=== PATIENT | female | born 1985 | race Caucasian/White ===

== ENCOUNTER → 2016-09-20 | Outpatient (CLI) | payer BC ==
--- NOTE | 2016-09-20 14:53 | CR ---
EXAMINATION: Left ankle HISTORY: Pain COMPARISON: 03/17/2016 TECHNIQUE: 3 views FINDINGS/IMPRESSION: There is no acute osseous abnormality, dislocation, or fracture identified. Bon e mineralization and joint spaces appear normal. The ankle mortise and talar dome appear intact.
== END | disposition home or self-care (01) ==
LOC: MW.CHORTHO 07:52
PROVIDERS: ATTEND Orthopaedic Surgery
DX: M25.572 Pain in left ankle and joints of left foot (principal)
CPT/HCPCS: 73610-26-LT; 73610-LT

== ENCOUNTER → 2016-09-21 | Outpatient (CLI) | payer BC ==
--- NOTE | 2016-09-22 09:54 | MR ---
EXAMINATION: MRI of the left ankle HISTORY: Pain COMPARISON: Radiographs dated 09/20/2016 TECHNIQUE: Multiplanar and multisequence images obtained of the left ankle without contrast. FINDINGS: The Achilles tendon appears normal. The anterior talofibular ligament is torn posterior ta lofibular ligament is increased in signal however intact. Anterior and posterior tibiofibular ligame nts are intact. The calcaneofibular ligament is now well characterized and likely torn. The peroneus brevis and longus tendons appear intact. The remaining flexor and extensor tendons appear normal. T here is no abnormal bone marrow signal. The joint spaces appear preserved. No abnormal signal within the sinus Tarsi. No joint effusion. The posterior tibiotalar ligament is indistinct. IMPRESSION: 1. Anterior talofibular and calcaneofibular ligament tears. 2. Probable sprain of the posterior tibiotalar ligament.
== END ==
LOC: MW.MRI 14:13
PROVIDERS: ATTEND Orthopaedic Surgery
DX: M25.572 Pain in left ankle and joints of left foot (principal); S93.492A Sprain of other ligament of left ankle, initial encounter
CPT/HCPCS: 73721-26-LT; 73721-LT

== ENCOUNTER 2021-06-11 17:16 | Emergency (ER) | payer BC ==
--- NOTE | 2021-06-11 17:19 | EDM.PDOC ---
ED HPI GENERAL MEDICAL PROBLEM - General Chief Complaint: Upper Extremity Injury/Pain Stated Complaint: LT MIDDLE FINGER INJURY Time Seen by Provider: 06/11/21 17:18 Source of Information: Reports: Patient History Limitations: Reports: No Limitations - History of Present Illness INITIAL COMMENTS - FREE TEXT/NARRATIVE: HISTORY AND PHYSICAL: History of present illness: Patient is a 35-year-old female who presents to the emergency room with complaints of a crush injury of the left third digit. There is a laceration through the mid-nail, avoiding the base of the nail. She has full ROM. Patient denies any fever, chills, headache, change in vision, syncope or near syncope. Denies any chest pain, back pain, shortness of breath or cough. Denies any abdominal pain, nausea, vomiting, diarrhea, constipation or dysuria. Has not noted any blood in urine or stool. Patient has been eating and drinking appropriately. No recent travel or sick contacts. Review of systems: As per history of present illness and below otherwise all systems reviewed and negative. Past medical history: As per history of present illness and as reviewed below otherwise noncontributory. Surgical history: As per history of present illness and as reviewed below otherwise noncontributory. Social history: See social history for further information Family history: As per history of present illness and as reviewed below otherwise noncontributory. Physical exam: General: Well developed and well nourished 35-year-old female. Alert and orientated x 3. Nontoxic in appearance and in no acute distress. Vital signs are stable and have been reviewed by me. Nursing notes were reviewed. HEENT: Atraumatic, normocephalic, pupils equal and reactive bilaterally, negative for conjunctival pallor or scleral icterus, mucous membranes moist, TMs normal bilaterally, throat clear, neck supple, nontender, trachea midline. No drooling or trismus noted. No meningeal signs. No hot potato voice noted. Lungs: Clear to auscultation bilaterally. No wheezes, rales, or rhonchi. Chest nontender. Normal work of breathing, no accessory muscles used. Heart: S1S2, regular rate and rhythm without overt murmur, gallops, or rubs. No JVD. No peripheral edema Abdomen: Soft, nondistended, nontender. Normoactive bowel sounds. Negative for masses or costovertebral tenderness. Skin: 0.5 cm laceration through the distal nail of the left third finger. Remaining skin is intact, warm, dry. No lesions or rashes noted. Hematologic: No petechiae or purpra. Mucosa appropriate color and normal nail bed color and refill. Extremities: Crush injury of the left third finger, cap refill less than 2 seconds. No active bleeding. She moves all extremities per self without difficulty or deficits, negative for cords or calf pain. Neurovascular unremarkable. Neuro: Awake, alert, oriented. Cranial nerves II through XII unremarkable. Cerebellum unremarkable. Motor and sensory unremarkable throughout. Exam nonfocal. Psychiatric: Mood and affect are appropriate. Normal thought process. Answering questions appropriately. Please note that the patient was seen and evaluated during the 2019 SARS-CoV-2 novel coronavirus pandemic period. Community viral transmission is ongoing at time of this encounter and the emergency department is operating under pandemic response procedures. Medical Decision Making: X-ray shows a left third digit three-view radiograph. Mildly comminuted fracture of the tuft of the 3rd digit distal phalanx with minimally displaced fracture fragments. Soft tissue defect of the distal digit. No radiopaque foreign body identified. Laceration was cleansed with chlorhexidine after soaking for 15 minutes. Laceration is approximately 0.5 centimeters through the distal nail, does not affect the base of the nail. I did talk with Dr Tarsha Welch who gave recommendations. I have talked with the patient about today's findings, in addition to providing specific details for plan of care. Place patient on Keflex. Reassessment at the time of disposition demonstrates that the patient is in no acute distress. The patient is stable for discharge, counseling was provided and we discussed in great detail signs and symptoms that would prompt them to return to the Emergency Department. Medication, follow up and supportive care measures were reviewed and discussed. Voices understanding and is agreeable to plan of care. Denies any further questions or concerns at this time. Diagnostics: Finger x-ray Therapeutics: Tdap, ibuprofen Prescription: Keflex Impression: Tuft fracture Plan: 1. You were evaluated today on an emergent basis. Your x-ray shows a tuft fracture. We did talk to Dr. Tarsha Welch about your injury. She agrees that the nail should not be removed. Keep the skin clean and dry. Wash gently with mild soap and water twice daily. After the skin has healed in approximately 2 weeks, you can apply a nail lacquer or glue over the nail while it is growing out to avoid catching on clothing. 2. Take the antibiotic as prescribed. You can alternate Tylenol and ibuprofen as needed for pain and fever management. 3. We encourage you to follow up with your primary care provider and/or recommended specialist in the next few days for re-evaluation and further care/management. 4. If your symptoms should worsen, new symptoms develop or any of the signs and symptoms we discussed should arise please return to the emergency room or call 911 (if needed). Definitive disposition and diagnosis as appropriate pending reevaluation and review of above. L hand Pain Score (Numeric/FACES): 3 - Related Data Allergies Allergy/AdvReac Type Severity Reaction Status Date / Time Band-aid adhesive part AdvReac Redness Uncoded 06/11/21 17:22 Home Meds: Home Meds Ascorbic Acid [Vitamin C] 1 tab PO DAILY 06/16/15 [History] Calcium Carbonate [Calcium] 1 tab PO DAILY 06/16/15 [History] Iron 1 tab PO DAILY 06/16/15 [History] Vit No.78/Iron/Fa [Prenatabs FA] 1 tab PO DAILY 06/16/15 [History] Yeast,Dried (S. Cerevisiae) [Martínez's Yeast] 2 tab PO DAILY 06/16/15 [History] Hydrocodone/Acetaminophen [HYDROcodone-Acetaminophen 5-325 MG] 1 - 2 tab PO Q4HR PRN #15 tablet 06/11/21 [Rx] cephALEXin [Keflex] 500 mg PO BID 5 Days #10 cap 06/11/21 [Rx] Past Medical History Gastrointestinal History: Reports: GERD Other Gastrointestinal History: Heartburn in only Genitourinary History: Reports: Other (See Below) Other Genitourinary History: Pelvic Organ prolapse, 3 Para 3 Last delivery 03/31/15 Lactating mother RAZOR GRINDER History: Reports: Prolapsed Uterus Hematologic History: Reports: Anemia Other Dermatologic History: History 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 Neither have had follow-up for Clearance of MRSA - Infectious Disease History Infectious Disease History: Reports: Chicken Pox - Past Surgical History HEENT Surgical History: Reports: Oral Surgery Musculoskeletal Surgical History: Reports: Other (See Below) Social & Family History - Family History Cardiac: Reports: Hypertension OBGYN: Reports: Fibroids, , Other (See Below) Other OBGYN Family History: hysterectomy Neurological: Reports: Other (See Below) Other Neurological Family History: stroke Endocrine/Metabolic: Reports: Diabetes, type II, Hyperthyroidism Oncologic: Reports: Brain, Lung Review of Systems - Review of Systems Review Of Systems: Comprehensive ROS is negative, except as noted in HPI. ED EXAM, GENERAL - Physical Exam Exam: See Below (See dictation) Course - Vital Signs Last Recorded V/S: Last Vital Signs Temp 97.4 F 06/11/21 17:24 Pulse 82 06/11/21 17:24 Resp 18 06/11/21 17:24 BP 120/91 H 06/11/21 17:24 Pulse Ox 87 L 06/11/21 17:24 - Orders/Labs/Meds Orders: Active Orders 24 hr Category Date Time Status Communication Order [RC] STAT Care 06/11/21 17:38 Active Vaccine to be Administered/Admin Charge [RC] ASDIRECTED Care 06/11/21 17:24 Active Meds: Medications Discontinued Medications Generic Name Dose Route Start Last Admin Trade Name Freq PRN Reason Stop Dose Admin Bacitracin 1 dose 06/11/21 17:23 06/11/21 17:56 Bacitracin Oint 1 Gm U/D Packet TOP 06/11/21 17:24 1 dose ONETIME ONE Administration Diphtheria/Tetanus/Acell Pertussis 0.5 ml 06/11/21 17:23 06/11/21 17:51 Diphtheria,Pertussis(Acell),Tetanus Vaccine 0.5 Ml Syringe IM 06/11/21 17:24 0.5 ml .ONCE ONE Administration Ibuprofen 800 mg 06/11/21 17:38 06/11/21 17:50 Ibuprofen 800 Mg Tab PO 06/11/21 17:39 800 mg ONETIME ONE Administration Departure - Departure Time of Disposition: 18:18 Disposition: Home, Self-Care 01 Clinical Impression: Open fracture of tuft of distal phalanx of finger, Laceration - Discharge Information Prescriptions: Hydrocodone/Acetaminophen [HYDROcodone-Acetaminophen 5-325 MG] 1 - 2 tab PO Q4HR PRN #15 tablet PRN Reason: Pain (Moderate 4-6) cephALEXin [Keflex] 500 mg PO BID 5 Days #10 cap Forms: ED Department Discharge Additional Instructions: The following information is given to patients seen in the emergency department who are being discharged to home. This information is to outline your options for follow-up care. We provide all patients seen in our emergency department with a follow-up referral. The need for follow-up, as well as the timing and circumstances, are variable depending upon the specifics of your emergency department visit. If you don't have a primary care physician on staff, we will provide you with a referral. We always advise you to contact your personal physician following an emergency department visit to inform them of the circumstance of the visit and for follow-up with them and/or the need for any referrals to a consulting specialist. The emergency department will also refer you to a specialist when appropriate. This referral assures that you have the opportunity for follow-up care with a specialist. All of these measure are taken in an effort to provide you with optimal care, which includes your follow-up. Under all circumstances we always encourage you to contact your private physician who remains a resource for coordinating your care. When calling for follow-up care, please make the office aware that this follow-up is from your recent emergency room visit. If for any reason you are refused follow-up, please contact the [facility] Emergency Department at and asked to speak to the emergency department charge nurse. [facility] [address] [place] [address] [place] [address] Thank you for choosing the [facility] emergency department in [place] for your medical needs today. It was a pleasure caring for you. Today you were seen in the emergency department for finger injury Your prescription was electronically sent to: [facility]. You were evaluated today on an emergent basis. Your x-ray shows a tuft fracture. We did talk to Dr. Tarsha Perry about your injury. She agrees that the nail should not be removed. Keep the skin clean and dry. Wash gently with mild soap and water twice daily. After the skin has healed in approximately 2 weeks, you can apply a nail lacquer or glue over the nail while it is growing out to avoid catching on clothing. 2. Take the antibiotic as prescribed. You can alternate Tylenol and ibuprofen as needed for pain and fever management. 3. We encourage you to follow up with your primary care provider and/or zachariah mmended specialist in the next few days for re-evaluation and further care/management. 4. If your symptoms should worsen, new symptoms develop or any of the signs and symptoms we discussed should arise please return to the emergency room or call 911 (if needed). Sepsis Event Note (ED) - Focused Exam Vital Signs: Vital Signs Temp Pulse Resp BP Pulse Ox 06/11/21 17:24 97.4 F 82 18 120/91 H 87 L - My Orders Last 24 Hours: My Active Orders 06/11/21 17:24 Vaccine to be Administered/Admin Charge [RC] ASDIRECTED 06/11/21 17:38 Communication Order [RC] STAT - Assessment/Plan Last 24 Hours: My Active Orders 06/11/21 17:24 Vaccine to be Administered/Admin Charge [RC] ASDIRECTED 06/11/21 17:38 Communication Order [RC] STAT
[2021-06-11] MEDS ORDERED: Bacitracin Oint 1 GM U/D Packet TOP ONE (17:23)
[2021-06-11] MEDS ORDERED: Diphtheria,Pertussis(Acell),Tetanus Vaccine 0.5 ML Syringe IM ONE (17:23)
[2021-06-11 17:29] VITALS: BP 120/91; PULSE 82
[2021-06-11] MEDS ORDERED: Ibuprofen 800 MG Tab PO ONE (17:38)
--- NOTE | 2021-06-11 18:27 | CR ---
INDICATION: Crush injury COMPARISON: None FINDINGS AND IMPRESSION: Left third digit three-view radiograph. Mildly comminuted fracture of the tuft of the 3rd digit distal phalanx with minimally displaced fracture fragments. Soft tissue defect of the distal digit. No radiopaque foreign body identified. Dictated by Italia Dangelo MD @ 06/11/2021 6:26:11 PM (Electronically Signed)
== END 2021-06-11 18:51 | disposition home or self-care (01) ==
LOC: MW.ED 17:16
DX: S62.633B Displaced fracture of distal phalanx of left middle finger, initial encounter for open fracture (principal); K21.9 Gastro-esophageal reflux disease without esophagitis; Z91.048 Other nonmedicinal substance allergy status; Z79.899 Other long term (current) drug therapy; Z23 Encounter for immunization; W22.09XA Striking against other stationary object, initial encounter
CPT/HCPCS: 73140; 90471; 90715; 99283; A9270